=== PATIENT | male | born 1985 | race Caucasian/White ===

== ENCOUNTER 2022-07-31 11:58 | Emergency (ER) | payer OTHER, SELFPAY ==
[2022-07-31 12:08] VITALS: BP 139/88; PULSE 99; RESP 18; TEMP 36.7; O2SAT 99
--- NOTE | 2022-07-31 12:25 | ED.EAR ---
HPI - Ear Problem General Chief complaint: Ear Stated complaint: Dizzines,Lt Ear Irritation,Lightheaded Time Seen by Provider: 07/31/22 12:16 Source: patient and RN notes reviewed Mode of arrival: ambulatory Limitations: no limitations History of Present Illness HPI Narrative: Patient presents today with a 3 day history of dizziness that is worse in the evenings. It is exacerbated with head movement, primarily flexion and extension of the head. He is also complaining of left ear discomfort that started this morning. Patient has not tried any [id number] treatment prior to arrival. He describes the dizziness as a, ?annoyance rather than a severe problem. Denies numbness or tingling in the extremities. Denies weakness. Denies nausea or vomiting. Denies chest pain or shortness of breath. Related Data Home Medications Medication Instructions Recorded Confirmed topiramate 25 mg tablet 25 mg PO DIRECTED 07/31/22 07/31/22 Allergies Allergy/AdvReac Type Severity Reaction Status Date / Time cefaclor [From [facility]] Allergy Other Verified 07/31/22 12:17 Review of Systems Review of Systems: CONSTITUTIONAL: Denies body aches, fever, chills, or sweats. EYES: Denies visual changes, redness, or discharge. ENT: Denies rhinorrhea, congestion, sore throat. + left ear pain CARDIOVASCULAR: Denies chest pain, palpitations, or edema. RESPIRATORY: Denies cough or dyspnea. GASTROINTESTINAL: Denies abdominal pain, nausea, vomiting, or diarrhea. GENITOURINARY: Denies dysuria or hematuria. SKIN: Denies rash, itching, or wounds. MUSCULOSKELETAL: Denies back pain, joint pain, or myalgia. NEUROLOGIC: Denies headache, numbness, tingling, or weakness.+ dizziness PSYCH: Denies depression or anxiety. PMFSH Comments At time of signature, I have reviewed and agree with nursing past medical, surgical, social and family history unless otherwise noted. Please see nursing chart for further information. There is no relevant family history pertinent to the presenting complaint Exam Narrative: GENERAL: Well-appearing, well-nourished, and in no acute distress. HEAD: Normocephalic, atraumatic. EYES: EOMI. No redness or drainage. Conjunctivae normal. ENT: Mucous membranes pink and moist. Nares clear. No rhinorrhea. Right TM normal. Left TM with mild middle ear effusion without evidence of bacterial infection. NECK: Normal AROM. Supple. No lymphadenopathy. Symptoms reproduced with flexion and extension of neck. CHEST: No respiratory distress. Clear to auscultation. HEART: Regular rate and rhythm. No murmur appreciated. Normal peripheral pulses. EXTREMITIES: Normal range of motion. No edema. SKIN: Warm, dry, no rash. Capillary refill normal. Normal skin turgor. NEURO: No focal deficits. Alert and oriented x3. Gait steady. PSYCH: Normal affect. No signs of depression or anxiety. Course Course Level of Care: Express Care Visit Vital Signs Vital signs: Vital Signs Temperature 98.1 F 07/31/22 12:08 Pulse Rate 99 07/31/22 12:08 Respiratory Rate 18 07/31/22 12:08 Blood Pressure 139/88 07/31/22 12:08 Pulse Oximetry 99 07/31/22 12:08 Oxygen Delivery Room Air 07/31/22 12:08 Temperature 98.1 F 07/31/22 12:08 Pulse Rate 99 07/31/22 12:08 Respiratory Rate 18 07/31/22 12:08 Blood Pressure 139/88 07/31/22 12:08 Pulse Oximetry 99 07/31/22 12:08 Oxygen Delivery Room Air 07/31/22 12:08 Reviewed. Pt has been instructed to follow up with his PCP regarding his elevated blood pressure today. Medical Decision Making MDM Narrative Medical decision making narrative: Symptoms consistent with middle ear effusion causing vertigo. Instructed patient to start Sudafed and Flonase as well as meclizine as needed. No prescription medications indicated at this time. Anticipatory guidance given. Differential Diagnosis Differential Diagnosis: otitis media, otitis externa, ruptured TM, serous otitis,
== END 2022-07-31 12:33 | disposition home or self-care (01) ==
PROVIDERS: Emergency Provider Nurse Practitioner; PCP Family Medicine
DX: R42 Dizziness and giddiness (principal); H65.02 Acute serous otitis media, left ear
CPT/HCPCS: 99202; G0463